=== PATIENT | female | born 1980 | race Hispanic/Latino ===

== ENCOUNTER 2018-08-12 17:29 | Emergency (ER) | payer OTHER ==
[2018-08-12] MEDS ORDERED: Ondansetron ODT 4 MG TAB ONE (17:47)
[2018-08-12] MEDS ORDERED: Metoclopramide HCl 10 MG/2 ML VIAL ONE (18:38)
[2018-08-12] MEDS ORDERED: diphenhydrAMINE 50 MG/ML VIAL ONE (18:38)
[2018-08-12 19:06] LABS: #Basophils 0.1 thou/uL (0.0-0.2); #Eosinphils 0.1 thou/uL (0.0-0.7); #Lymphocytes 3.1 thou/uL (1.20-3.40); #Monocytes 0.8 thou/uL (0.11-0.59); #Neutrophils 5.6 thou/uL (1.40-6.50); %Basophils 0.6 % (0.0-1.0); %Eosinophils 1.5 % (0.0-10.0); %Lymphocytes 31.9 % (21.0-51.0); %Monocytes 7.8 % (0.0-10.0); %Neutrophils 58.2 % (42.0-75.0); Mean Corpuscular HGB CONC 35.9 g/dL (32.0-36.0); Mean Corpuscular Hemoglobin 31.7 pg (27.0-31.0); Mean Corpuscular Volume 88.4 fL (78.0-98.0); Platelet Count 276 thou/uL (130-400); Red Blood Cell (RBC) Count 5.04 mill/uL (4.20-5.40); White Blood Cell (WBC) Count 9.7 thou/uL (4.8-10.8)
[2018-08-12] MEDS ORDERED: Dexamethasone 10 MG/ML VIAL ONE (19:12)
[2018-08-12 19:28] LABS: BHCG - Serum Negative (NEGATIVE); Pregs Control Background? CLEAR/WHITE (CLR/WHITE); Pregs Control Bar Appear? YES (CONTROL BAR)
[2018-08-12 19:32] LABS: ALT (SGPT) 32 U/L (8-55); AST (SGOT) 38 U/L (5-34); Albumin 4.4 g/dL (3.5-5.0); Alkaline Phosphatase 90 U/L (40-150); Anion Gap 14 mmol/L (10-20); BUN (Urea Nitrogen) 11 mg/dL (7.0-18.7); Calc. Creatinine Clearance 0 mL/min (70-130); Calcium 9.2 mg/dL (7.8-10.44); Carbon Dioxide 20 mmol/L (22-29); Chloride 102 mmol/L (98-107); Estimated GFR-MDRD 71; Globulin 3.3 g/dL (2.4-3.5); Glucose 96 mg/dL (70-105); Lipase 16 U/L (8-78); Potassium 4.2 mmol/L (3.5-5.1); Protein, Total 7.7 g/dL (6.0-8.3); Sodium 132 mmol/L (136-145)
== END 2018-08-12 20:32 | disposition home or self-care (01) ==
LOC: ERS 17:29
DX: R11.2 Nausea with vomiting, unspecified (principal); F32.9 Major depressive disorder, single episode, unspecified
CPT/HCPCS: 80053; 82533; 83690; 84703; 85025; 96365; 96375; J1100; J1200; J2765; Q0162

== ENCOUNTER 2018-09-12 06:14 | Emergency (ER) | payer OTHER ==
[2018-09-12] MEDS ORDERED: diphenhydrAMINE 50 MG/ML VIAL ONE (07:29)
[2018-09-12] MEDS ORDERED: Metoclopramide HCl 10 MG/2 ML VIAL ONE (07:29)
[2018-09-12 07:35] LABS: #Eosinphils 0.1 thou/uL (0.0-0.7); #Lymphocytes 3.4 thou/uL (1.20-3.40); #Monocytes 0.8 thou/uL (0.11-0.59); #Neutrophils 9.2 thou/uL (1.40-6.50); %Basophils 0.3 % (0.0-1.0); %Eosinophils 0.5 % (0.0-10.0); %Lymphocytes 24.8 % (21.0-51.0); %Neutrophils 68.4 % (42.0-75.0); Hemoglobin 14.5 g/dL (12.0-16.0); Mean Corpuscular HGB CONC 35.6 g/dL (32.0-36.0); Mean Corpuscular Hemoglobin 31.7 pg (27.0-31.0); Mean Corpuscular Volume 88.9 fL (78.0-98.0); Mean Platelet Volume 9.5 fL (7.4-10.4); Platelet Count 302 thou/uL (130-400); RBC Distribution Width 10.9 % (11.5-14.5); Red Blood Cell (RBC) Count 4.59 mill/uL (4.20-5.40); White Blood Cell (WBC) Count 13.5 thou/uL (4.8-10.8)
[2018-09-12 07:44] LABS: BHCG - Serum Negative (NEGATIVE); Pregs Control Background? CLEAR/WHITE (CLR/WHITE); Pregs Control Bar Appear? YES (CONTROL BAR)
[2018-09-12 07:57] LABS: ALT (SGPT) 20 U/L (8-55); AST (SGOT) 14 U/L (5-34); Albumin 4.2 g/dL (3.5-5.0); Alkaline Phosphatase 91 U/L (40-150); Anion Gap 14 mmol/L (10-20); BUN (Urea Nitrogen) 19 mg/dL (7.0-18.7); Bilirubin, Total 0.5 mg/dL (0.2-1.2); CK (CPK) 95 U/L (29-168); Calc. Creatinine Clearance 0 mL/min (70-130); Calcium 8.7 mg/dL (7.8-10.44); Carbon Dioxide 20 mmol/L (22-29); Chloride 104 mmol/L (98-107); Estimated GFR-MDRD 43; Globulin 2.8 g/dL (2.4-3.5); Glucose 104 mg/dL (70-105); Lipase 29 U/L (8-78); Potassium 3.8 mmol/L (3.5-5.1); Sodium 134 mmol/L (136-145)
--- NOTE | 2018-09-19 20:27 | EKG ---
Test Reason : Blood Pressure : / mmHG Vent. Rate : 067 BPM Atrial Rate : 067 BPM P-R Int : 100 ms QRS Dur : 084 ms QT Int : 388 ms P-R-T Axes : 029 063 025 degrees QTc Int : 409 ms Sinus rhythm with short OR Otherwise normal ECG Confirmed by PAT DUNBAR D.O. ([id number]), science editor SIMONE MARTINEZ ([id number] on 09/19/2018 8:27:33 PM Referred By: Confirmed By:PAT DUNBAR D.O.
== END 2018-09-12 09:10 | disposition home or self-care (01) ==
LOC: ERS 06:14
DX: K29.70 Gastritis, unspecified, without bleeding (principal); F32.9 Major depressive disorder, single episode, unspecified; M19.90 Unspecified osteoarthritis, unspecified site; Z79.899 Other long term (current) drug therapy
CPT/HCPCS: 80053; 82550; 83690; 84484; 84703; 85025; 93005; 96361; 96365; 96372; 96375; J0500; J1200; J2765

== ENCOUNTER 2018-09-15 12:33 | Outpatient (CLI) | payer OTHER ==
--- NOTE | 2018-09-15 13:31 | MMO ---
Bilateral MAMMO Bilat Diag [facility]. CLINICAL HISTORY: Patient is 38 years old and is seen for diagnostic exam. The patient has no family history of breast cancer. The patient has no personal history of cancer. VIEWS: The views performed were: bilateral craniocaudal with tomosynthesis; bilateral mediolateral oblique with tomosynthesis; and bilateral mediolateral with tomosynthesis. FILMS COMPARED: The present examination has been compared to a prior imaging study performed at [facility] on 09/15/2018. MAMMOGRAM FINDINGS: There are scattered fibroglandular densities. There are no suspicious masses, suspicious calcifications, or new areas of architectural distortion. There are no mammographic or sonographic abnormalities in the area of palpable concern. The patient is referred back to her clinician. Negative imaging findings should not preclude biopsy if clinical findings are suspicious. IMPRESSION: THERE ARE NO MAMMOGRAPHIC ABNORMALITIES IN THE AREA OF PALPABLE CONCERN. THE PATIENT IS REFERRED BACK TO HER CLINICIAN. NEGATIVE IMAGING FINDINGS SHOULD NOT PRECLUDE BIOPSY IF CLINICAL FINDINGS ARE SUSPICIOUS. THE RESULTS OF THIS EXAM WERE SENT TO THE PATIENT. ACR BI-RADS Category 1 - Negative MAMMOGRAPHY NOTE: 1. A negative mammogram report should not delay a biopsy if a dominant of clinically suspicious mass is present. 2. Approximately 10% to 15% of breast cancers are not detected by mammography. 3. Adenosis and dense breasts may obscure an underlying neoplasm.
--- NOTE | 2018-09-15 13:58 | ULT ---
LIMITED LEFT BREAST ULTRASOUND: 09/15/18 PROVIDED CLINICAL HISTORY: Left breast palpable abnormality. FINDINGS: Limited sonographic interrogation of the breast was performed in the region of palpable concern. The sonographic appearance of the breast tissue in this region is normal. IMPRESSION: BIRADS 1: Negative Routine annual screening mammography (for women over age 40) Negative imaging finding should not preclude further evaluation of a clinically suspicious area. The patient is referred back to her clinician. POS: OFF
== END 2018-09-15 12:34 | disposition home or self-care (01) ==
LOC: BICMAMMO 12:33
PROVIDERS: ATTEND Family Medicine
DX: N63.20 Unspecified lump in the left breast, unspecified quadrant (principal)
CPT/HCPCS: 77066; G0279

== ENCOUNTER 2018-10-29 19:00 | Emergency (ER) | payer OTHER ==
[2018-10-29] MEDS ORDERED: Cyclobenzaprine 10 MG TAB ONE (20:19)
[2018-10-29 20:29] LABS: Pregnancy Test - Urine (BHCG) Negative (Negative); Pregu Control Background? CLEAR/WHITE (CLR/WHITE); Pregu Control Bar Appear? YES (CONTROL BAR); Specific Gravity 1.015 (1.002-1.036)
--- NOTE | 2018-10-29 21:17 | CT ---
CT Lumbar Spine WO Con HISTORY: Back pain status post fall. Pain is more left-sided. COMPARISON: None. FINDINGS: The vertebral bodies are normal in height there are degenerative osteophytic changes along the course of the spine with mild disc narrowing at L3-4. Facets are in normal alignment. No pars defects. No evidence of fracture. Posterior osteophytic changes seen at L1-2 and L2-3. The canal shows some mild narrowing at L3-4 with disc bulge and mild facet and ligamentous hypertrophic change. There are similar changes at L4-5. The L5-S1 level is unremarkable. These findings may be better assessed with MRI. Patient has a history of congenital adrenal hyperplasia. The right adrenal gland is mildly hyperplast ic. There is a partially visualized large mass involving the left adrenal gland measuring 8 cm. It has some internal fatty component. Correlation with prior exams may be helpful in evaluating for trejo ge in size. Visualized portions of the kidneys are unremarkable. IMPRESSION: No acute injury. Nonacute findings as described above.
--- NOTE | 2018-10-29 21:18 | CT ---
CT Thoracic Spine WO Con HISTORY: Fall with back pain COMPARISON: None. FINDINGS: The vertebral bodies maintain normal height no signs of any compression fractures. Mild deg enerative osteophytic changes are seen along the course of the spine. Visualized lung miguel are clear. No rib fractures are identified. The left adrenal mass is again par tially visualized. IMPRESSION: No acute injury.
== END 2018-10-29 21:30 | disposition home or self-care (01) ==
LOC: ERS 19:00
DX: M54.5 Low back pain (principal); M54.6 Pain in thoracic spine; M19.90 Unspecified osteoarthritis, unspecified site; F32.9 Major depressive disorder, single episode, unspecified; Z79.899 Other long term (current) drug therapy; W01.0XXA Fall on same level from slipping, tripping and stumbling without subsequent striking against object, initial encounter
CPT/HCPCS: 72128; 72131; 81025

== ENCOUNTER 2019-04-30 10:45 | Emergency (ER) | payer OTHER ==
[2019-04-30] MEDS ORDERED: HYDROcodone/Acetaminophen 10/325 mg Tablet ONE (12:34)
[2019-04-30] MEDS ORDERED: Dexamethasone 10 MG/ML VIAL ONE (12:34)
== END 2019-04-30 13:36 | disposition home or self-care (01) ==
LOC: ERS 10:45
DX: M79.89 Other specified soft tissue disorders (principal); M19.90 Unspecified osteoarthritis, unspecified site; F32.9 Major depressive disorder, single episode, unspecified; Z79.899 Other long term (current) drug therapy
CPT/HCPCS: 36415; 85652; 86140; 99283; J1100

== ENCOUNTER 2020-01-30 15:46 | Emergency (ER) | payer OTHER ==
[2020-01-30 16:35] LABS: #Eosinphils 0.2 thou/uL (0.0-0.7); #Lymphocytes 2.9 thou/uL (1.20-3.40); #Monocytes 0.6 thou/uL (0.11-0.59); #Neutrophils 5.5 thou/uL (1.40-6.50); %Basophils 0.2 % (0.0-1.0); %Eosinophils 1.8 % (0.0-10.0); %Lymphocytes 31.4 % (21.0-51.0); %Monocytes 6.6 % (0.0-10.0); Hemoglobin 16.6 g/dL (12.0-16.0); Mean Corpuscular HGB CONC 35.8 g/dL (32.0-36.0); Mean Corpuscular Volume 89.5 fL (78.0-98.0); Mean Platelet Volume 9.1 fL (7.4-10.4); Platelet Count 246 thou/uL (130-400); RBC Distribution Width 11.2 % (11.5-14.5); Red Blood Cell (RBC) Count 5.17 mill/uL (4.20-5.40); White Blood Cell (WBC) Count 9.2 thou/uL (4.8-10.8)
[2020-01-30 16:54] LABS: ALT (SGPT) 16 U/L (8-55); AST (SGOT) 17 U/L (5-34); Albumin 3.8 g/dL (3.5-5.0); Alkaline Phosphatase 92 U/L (40-110); Anion Gap 13 mmol/L (10-20); BUN (Urea Nitrogen) 10 mg/dL (7.0-18.7); Bilirubin, Total 0.8 mg/dL (0.2-1.2); Calc. Creatinine Clearance 0 mL/min (70-130); Calcium 8.2 mg/dL (7.8-10.44); Carbon Dioxide 19 mmol/L (22-29); Chloride 108 mmol/L (98-107); Estimated GFR-MDRD 82; Glucose 86 mg/dL (70-105); Potassium 3.8 mmol/L (3.5-5.1); Protein, Total 6.8 g/dL (6.0-8.3); Sodium 136 mmol/L (136-145)
[2020-01-30 16:55] LABS: Acetaminophen Less than 6.0 mcg/mL (10.0-30.0); Alcohol 15 mg/dL (Less than 10); Salicylate Less than 8.0 mg/dL (15.0-30.0)
[2020-01-30 19:01] LABS: Bacteria/HPF None Seen HPF (None Seen); Bilirubin Negative (Negative); Blood, Urine Negative (Negative); Clarity Clear (Clear); Glucose, Urine (Dipstick) Normal (Negative); Ketone, Urine Negative (Negative); Leukocyte Negative Leu/uL (Negative); Nitrite Negative (Negative); Protein, Urine (Dipstick) 30 mg/dL (Neg-Trace); RBC/HPF 0-3 HPF (0-3); Specific Gravity, Urine 1.017 (1.002-1.036); Squamous Epithelial None Seen HPF (0-3); Urobilinogen Normal mg/dL (Less than 2); WBC/HPF 0-3 HPF (0-3); pH, Urine 5.5 (5.0-9.0)
[2020-01-30 19:02] LABS: Pregnancy Test - Urine (BHCG) Negative (Negative); Pregu Control Background? CLEAR/WHITE (CLR/WHITE); Pregu Control Bar Appear? YES (CONTROL BAR); Specific Gravity 1.017 (1.002-1.036)
[2020-01-30 19:11] LABS: Amphetamine Not Detected (NotDetected); Barbiturates Screen Not Detected (NotDetected); Benzodiazepine Screen Not Detected (NotDetected); Cocaine Metabolite Screen Not Detected (NotDetected); Medtox Control Line Valid? VALID (VALID); Medtox Reader # READER 4; Methadone Not Detected (NotDetected); Methamphetamine Not Detected (NotDetected); Opiate Screen Not Detected (NotDetected); Oxycodone Screen Not Detected (NotDetected); Phencyclidine (PCP) Not Detected (NotDetected); THC/Cannabinoid Screen Not Detected (NotDetected); Tricyclic Screen Not Detected (NotDetected)
== END 2020-01-31 03:00 ==
LOC: ERS 15:46
DX: T42.4X2A Poisoning by benzodiazepines, intentional self-harm, initial encounter (principal); M19.90 Unspecified osteoarthritis, unspecified site; F32.9 Major depressive disorder, single episode, unspecified
CPT/HCPCS: 36415; 80053; 80306; 80307; 81003; 81015; 81025; 84443; 85025; 93005

== ENCOUNTER 2021-09-04 13:01 | Outpatient (CLI) | payer OTHER | END 2021-09-04 13:02 | disposition home or self-care (01) | LOC: BICRAD 13:01 | PROVIDERS: ATTEND Internal Medicine | DX: M25.561 Pain in right knee (principal) ==

== ENCOUNTER 2022-10-02 05:53 | Emergency (ER) | payer OTHER ==
[2022-10-02] MEDS ORDERED: Bupivacaine 0.25% 10 ML VIAL ONE (06:12)
[2022-10-02] MEDS ORDERED: Ondansetron ODT 4 MG TAB ONE (06:30)
== END 2022-10-02 06:34 | disposition home or self-care (01) ==
LOC: ERS 05:53
DX: K02.9 Dental caries, unspecified (principal)
CPT/HCPCS: 64400; Q0162; S0020